=== PATIENT | female | born 1990 | race Asian ===

== ENCOUNTER 2021-12-30 17:32 | Emergency (ER) | payer MEDICAID ==
[~2021-12-30] VITALS: Ht 172.7 cm; Wt 102.1 kg
[2021-12-30 17:50] VITALS: BP 141/77
--- NOTE | 2021-12-30 17:58 | NUR ---
Brian martinez in ED - 12/30/21 at 1800 by [email or web address] PT W/C TO BED 9.
--- NOTE | 2021-12-30 18:15 | NUR ---
BIB FAMILY C/O LEFT ANKLE PAIN , SWELLING & LEFT LOWER LEG NUMBNESS S/P FALLING OFF THE TRUCK X TODAY. DENIES LOC. PEDAL PULSE +2. PMH: HTN
--- NOTE | 2021-12-30 18:20 | NUR ---
PT TAKEN TO X RAY VIA W/C.
--- NOTE | 2021-12-30 18:20 | NUR ---
C/O LEFT ANKLE PAIN & LEFT LOWER LEG NUMBNESS S/P FALL X TODAY. DENIES LOC. PEDAL PULSE +2. PMH: HTN
--- NOTE | 2021-12-30 19:25 | NUR ---
SHORT LEG POSTERIOR SPLINT APPLIED TO PTS LEFT LEG. WRAPPED WITH CODY WRAP X2 WITH + CMS.
--- NOTE | 2021-12-30 19:40 | NUR ---
Patient discharged with v/s stable. Written and verbal after care instructions given and explained. Patient verbalized understanding. Wheel Chair Assisted with by staff. All questions addressed prior to discharge. Advised to follow up with PMD.
== END 2021-12-30 19:40 | disposition home or self-care (01) ==
LOC: MED 17:32
DX: S82.832A Other fracture of upper and lower end of left fibula, initial encounter for closed fracture (principal); X58.XXXA Exposure to other specified factors, initial encounter; Y93.89 Activity, other specified; Y92.89 Other specified places as the place of occurrence of the external cause; Y99.8 Other external cause status
CPT/HCPCS: 29515; 73610; 99283